=== PATIENT | male | born 1960 | race Caucasian/White ===

== ENCOUNTER 2016-03-22 07:31 | Observation (INO) | payer MEDICAID ==
[2016-03-22 07:40] VITALS: BMI 29.5
--- NOTE | 2016-03-22 08:05 | EDPRACDOC ---
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: Home Medications Alprazolam [Xanax] 1 mg PO TID PRN 09/02/14 Gabapentin [Neurontin] 400 mg PO TID 09/02/14 HydrOXYzine Pamoate (Anxiety) [Vistaril] 25 mg PO Q6H PRN 09/02/14 Oxycodone HCl [Oxycodone Immediate Release] 20 mg PO Q6H PRN 09/02/14 Oxymorphone HCl [Opana ER] 10 mg PO Q12H 09/02/14 Fluticasone/Vilanterol [Breo Ellipta 100-25 Mcg INH] 1 puff INH DAILY 03/22/16 Allergies/Adverse Reactions: Allergies Allergy/AdvReac Type Severity Reaction Status Date / Time No Known Allergies Allergy Verified 09/02/14 11:28 - History of Present Illness Onset: 3 years HPI: PT PRESENTS WITH PARANOIA AND PERSECUTIONAL THOUGHTS. REPORTS THERE ARE ALIENS IN HIS ABDOMEN THAT HAVE BEEN THERE SINCE HE WAS A CHILD THAT CAN CONTROL HIS AND EVERYONE'S THOUGHTS. STATES HE WANTS THEM OUT. Reason for Seeking Treatment: 911 Call Presents With: Reports: Anxiety, Unclear Thinking Relevant History: Reports: Anxiety, Schizophrenia, Bipolar - Treatment Prior to ED Arrival Reported Medications/Treatment SPOT CHECKER Medications SPOT CHECKER (Medication/ none Dose/Time) ED Past Medical History - History Reviewed Yes Nurses notes reviewed and agree except as marked - Patient Medical History Cardiac History: Reports: Hypertension Psychological History: Reports: Depression, Anxiety, Schizophrenia, Bipolar Disorder Additional Past Medical History: CHRONIC PAIN Surgical History: Reports: Other (PT UNABLE TO SAY) - Social Medical History Smoking Status: Heavy tobacco smoker (5 or more cigarettes/day or daily pipe/ cigar) Lives In: Home EDM Review of Systems - Review of Systems ROS Negative Except as Marked: Yes All systems reviewed and were negative except as marked Constitutional: negative: Fever Respiratory: negative: Shortness of Breath Cardiovascular: negative: Chest Pain Gastrointestinal: Pain (SUPRAPUBIC). negative: Diarrhea, Vomiting Genitourinary: negative: Dysuria Psychiatric: Anxiety, Other (PARANOID THOUGHTS) - Physical Exam Constitutional: Alert Oriented to: Person, Place Last recorded Vital Signs: Last Vital Signs Temp 98.2 F 03/22/16 07:33 Pulse 102 03/22/16 07:33 Resp 18 03/22/16 07:33 BP 161/103 H 03/22/16 07:33 Pulse Ox 98 03/22/16 07:33 Oxygen Pulse Oxygen Saturation 98 O2 Device Oxygen Flow Rate Fraction of Inspired Oxygen ( FIO2) - HEENT Head: negative: Deformity, Laceration Eye Exam: negative: Conjunctival Injection, Pale Conjunctiva Oropharynx: negative: Membranes Dry Nose: negative: Congestion, Discharge Neck: negative: Limited ROM - Respiratory/Cardiovascular Respiratory: Normal - CTA. negative: Accessory Muscle Use, Diminished, Tachypnea Cardiovascular: Tachycardia. negative: Bradycardia, Irregular - GI Auscultation: Normal Palpation: Normal Tenderness: Mild, Suprapubic. negative: Guarding, Rebound - Integumentary Skin: Warm, Dry. negative: Rash - Neurologic Motor Function: Normal Mood Description: Anxious Thought: Delusions, Flight of Ideas, Paranoia - Results 03/22/16 08:30 03/22/16 08:30
[2016-03-22 08:36] LABS: AUTOMATED BASOPHIL 0.8 % (0-2); AUTOMATED EOSINOPHIL 2.7 % (0-5); AUTOMATED LYMPH 14.4 % (17-44); AUTOMATED MONOCYTE 10.8 % (3-10); AUTOMATED NEUTROPHIL 71.3 % (45-76); MPV 8.7 fL (7.4-10.4)
[2016-03-22 09:13] LABS: BLOOD UREA NITROGEN 18 MG/DL (9-20); CALCIUM 9.3 MG/DL (8.4-10.2); CALCULATED OSMOLALITY 272 MOs/Kg (270-290); CHLORIDE 105 mEq/L (98-107); ETOH-MGDL < 10 mg/dL; GLUCOSE 124 MG/DL (70-99); SODIUM LEVEL 140 mEq/L (137-146); TOTAL PROTEIN 8.3 G/DL (6.3-8.2)
[2016-03-22] MEDS ORDERED: ACETAMINOPHEN 325 MG/TAB TABLET PO PRN (09:25)
[2016-03-22] MEDS ORDERED: Docusate Sodium 100 MG CAP PO PRN (09:25)
[2016-03-22] MEDS ORDERED: ONDANSETRON HCL 4 MG ODT TAB PO PRN (09:25)
[2016-03-22] MEDS ORDERED: GUAIFENESIN 200 MG/10 ML UDC PO PRN (09:25)
[2016-03-22] MEDS ORDERED: MAGNESIUM HYDROXIDE 30 ML BOTTLE PO PRN (09:25)
[2016-03-22 09:48] LABS: ALL NEG? YES; MDMA* NEG (NEGATIVE); METHAMPHETAMINES NEG (NEGATIVE); OXYCODONE NEG (NEGATIVE)
[2016-03-22] MEDS: NICOTINE 21 MG PATCH TOP SCH (09:49)
[2016-03-22 09:58] LABS: LEUKOCYTES/URINE NEG (NEGATIVE); NITRITE/URINE NEG (NEGATIVE); RBC/URINE 0-2 (0-2); URINE OCCULT BLOOD 1+ (NEG/TRACE); WBC/URINE 0-2 (0-2)
[2016-03-22] MEDS ORDERED: ALBUTEROL 6.7 GM MDI INH PRN (12:29)
[2016-03-22] MEDS: IPRATROPIUM 0.02% 2.5 ML NEB NEB SCH ×2 (15:42→21:05)
[2016-03-22] MEDS: GABAPENTIN 400 MG CAP PO SCH ×3 (15:43→21:28)
[2016-03-22] MEDS: INVEGA 3 MG PO ONE ×3 (17:26→19:12)
[2016-03-22] MEDS: PRAVASTATIN 20 MG TAB PO SCH ×2 (21:25→21:28)
[2016-03-22] MEDS: BuPROPion 150 MG SR TAB PO SCH ×2 (21:25→21:28)
[2016-03-23] MEDS: IPRATROPIUM 0.02% 2.5 ML NEB NEB SCH ×4 (01:58→20:59)
[2016-03-23] MEDS: GABAPENTIN 400 MG CAP PO SCH ×3 (05:13→20:29)
--- NOTE | 2016-03-23 08:50 | EDTUNOTE ---
- SOAP Note Time Seen By Provider: 08:30 SOAP Note: S: PT TO THE ED WITH PARANOID DELUSIONS, NONCOMPLIANT WITH MEDICATIONS. PT VOICES NO COMPLAINTS TODAY O: WDWN MALE HERNÁNDEZ X 3, VSS AFEBRILE LUNGS: CTAB CARDIAC: RRR PSYCH: CALM, COOPERATIVE A: SCHIZOPHRENIA ACUTE PSYCHOSIS MEDICATION NON-COMPLIANCE P: CONT PSYCH/MED EVAL/MGMT
[2016-03-23] MEDS ORDERED: INVEGA SUSTENNA 234 MG IM ONE (10:00)
[2016-03-23] MEDS: LISINOPRIL 10 MG TAB PO SCH (10:03)
[2016-03-23] MEDS: HydrOXYzine PAMOATE 25 MG/CAP CAP PO SCH (10:03)
[2016-03-23] MEDS: BuPROPion 150 MG SR TAB PO SCH ×2 (10:03→20:29)
[2016-03-23] MEDS: NICOTINE 21 MG PATCH TOP SCH (10:04)
[2016-03-23] MEDS: INVEGA 3 MG PO SCH (11:45)
[2016-03-23] MEDS: PRAVASTATIN 20 MG TAB PO SCH (20:29)
[2016-03-24] MEDS: IPRATROPIUM 0.02% 2.5 ML NEB NEB SCH ×5 (01:39→20:01)
[2016-03-24] MEDS: GABAPENTIN 400 MG CAP PO SCH ×3 (06:00→21:30)
--- NOTE | 2016-03-24 08:55 | EDTUNOTE ---
- SOAP Note SOAP Note: 03/24/16 0845 Day 3 S: 55 y.o. M presented to ED with delusions of aliens in his abd that can control peoples thoughts. Pt denies c/o this morning. O: Vital Signs: Temp:98.4 F HR: 69 BP: 127/68 RR: 20 Pox: 98%. Resting comfortably CTA RRR A: Acute Psychosis Schizophrenia Medication non compliance P: Continue meds as directed for further stabilization.
[2016-03-24] MEDS: INVEGA 3 MG PO SCH (09:25)
[2016-03-24] MEDS: LISINOPRIL 10 MG TAB PO SCH (09:25)
[2016-03-24] MEDS: BuPROPion 150 MG SR TAB PO SCH ×2 (09:28→21:30)
[2016-03-24] MEDS: NICOTINE 21 MG PATCH TOP SCH (09:28)
--- NOTE | 2016-03-24 14:55 | TUDEPART ---
Discussion of OBS Stay: 03/24/16 0845 Day 3 S: 55 y.o. M presented to ED with delusions of aliens in his abd that can control peoples thoughts. Pt denies c/o this morning. O: Vital Signs: Temp:98.4 F HR: 69 BP: 127/68 RR: 20 Pox: 98%. Resting comfortably CTA RRR A: Schizophrenia Medication non compliance P: Continue meds as directed for further stabilization. Pt refusing placement or additional help from TA or oncology social work. Disposition: Home Condition: Good Education/Counseling Given To: Patient Education/Counseling Given Regarding: Diagnosis, Treatment - Physical Exam Constitutional: Alert Oriented to: Person, Place Last recorded Vital Signs: Last Vital Signs Temp 97.9 F 03/24/16 11:59 Pulse 98 03/24/16 11:59 Resp 18 03/24/16 11:59 BP 120/75 03/24/16 11:59 Pulse Ox 96 03/24/16 11:59 Oxygen Pulse Oxygen Saturation 96 O2 Device Room Air Oxygen Flow Rate Fraction of Inspired Oxygen ( FIO2) - HEENT Head: negative: Deformity, Laceration Eye Exam: negative: Conjunctival Injection, Pale Conjunctiva Oropharynx: negative: Membranes Dry Nose: negative: Congestion, Discharge - Respiratory/Cardiovascular Respiratory: Normal - CTA. negative: Accessory Muscle Use, Diminished, Tachypnea Cardiovascular: Tachycardia. negative: Bradycardia, Irregular - GI Auscultation: Normal Palpation: Normal Tenderness: Mild, Suprapubic. negative: Guarding, Rebound - Integumentary Skin: Warm, Dry. negative: Rash - Neurologic Motor Function: Normal Mood Description: Anxious Thought: Delusions, Flight of Ideas, Paranoia
[2016-03-24] MEDS: PRAVASTATIN 20 MG TAB PO SCH (21:30)
[2016-03-25] MEDS: IPRATROPIUM 0.02% 2.5 ML NEB NEB SCH ×4 (01:10→20:54)
[2016-03-25] MEDS: GABAPENTIN 400 MG CAP PO SCH ×3 (06:04→20:32)
--- NOTE | 2016-03-25 08:32 | EDTUNOTE ---
- SOAP Note SOAP Note: 03/25/16 0825 Day 4 S: 55 y.o. M presented to ED with delusions of aliens in his abd that can control peoples thoughts. Pt denies c/o this morning. After pt was attempted to be discharged he decided he would consent to assisted living placement. Discharge planning was consulted. O: Vital Signs: Temp:98.4 F HR: 69 BP: 127/68 RR: 20 Pox: 98%. Resting comfortably CTA RRR A: Schizophrenia Medication non compliance P: Continue meds as directed for further stabilization.
[2016-03-25] MEDS: HydrOXYzine PAMOATE 25 MG/CAP CAP PO SCH (09:01)
[2016-03-25] MEDS: INVEGA 3 MG PO SCH (09:01)
[2016-03-25] MEDS: BuPROPion 150 MG SR TAB PO SCH ×2 (09:02→20:32)
[2016-03-25] MEDS: NICOTINE 21 MG PATCH TOP SCH (09:02)
[2016-03-25] MEDS: LISINOPRIL 10 MG TAB PO SCH (09:05)
[2016-03-25] MEDS: IBUPROFEN 400 MG TAB PO PRN ×2 (12:43→20:32)
[2016-03-25] MEDS: LORAZEPAM 1 MG TAB PO PRN ×2 (12:44→20:32)
[2016-03-25] MEDS: PRAVASTATIN 20 MG TAB PO SCH (20:32)
[2016-03-26] MEDS: IPRATROPIUM 0.02% 2.5 ML NEB NEB SCH ×4 (04:45→20:50)
[2016-03-26] MEDS: GABAPENTIN 400 MG CAP PO SCH ×3 (05:48→21:05)
--- NOTE | 2016-03-26 08:53 | EDTUNOTE ---
- SOAP Note Time Seen By Provider: 08:52 SOAP Note: 03/26/16 0852 Day 5 S: 55 y.o. M presented to ED with delusions of aliens in his abd that can control peoples thoughts. Pt denies c/o this morning. Patient is easy to wake but goes right back to sleep, does not answer many questions. O: VSS CTAB RRR Calm and cooperative A: Schizophrenia Medication non compliance P: Continue meds as directed for further stabilization.
[2016-03-26] MEDS: IBUPROFEN 400 MG TAB PO PRN ×3 (09:39→21:05)
[2016-03-26] MEDS: HydrOXYzine PAMOATE 25 MG/CAP CAP PO SCH (09:40)
[2016-03-26] MEDS: NICOTINE 21 MG PATCH TOP SCH (09:40)
[2016-03-26] MEDS: BuPROPion 150 MG SR TAB PO SCH ×2 (09:40→21:06)
[2016-03-26] MEDS: LISINOPRIL 10 MG TAB PO SCH (09:40)
[2016-03-26] MEDS: INVEGA 3 MG PO SCH (09:40)
[2016-03-26] MEDS: LORAZEPAM 1 MG TAB PO PRN ×3 (09:40→21:06)
[2016-03-26] MEDS ORDERED: TEMAZEPAM 15 MG CAP PO PRN (19:27)
[2016-03-26] MEDS: PRAVASTATIN 20 MG TAB PO SCH (21:06)
[2016-03-27] MEDS: IPRATROPIUM 0.02% 2.5 ML NEB NEB SCH ×2 (02:24→10:08)
[2016-03-27] MEDS: GABAPENTIN 400 MG CAP PO SCH (06:38)
[2016-03-27] MEDS: LORAZEPAM 1 MG TAB PO PRN (06:39)
[2016-03-27] MEDS: IBUPROFEN 400 MG TAB PO PRN (06:39)
[2016-03-27] MEDS: INVEGA 3 MG PO SCH (08:23)
[2016-03-27] MEDS: HydrOXYzine PAMOATE 25 MG/CAP CAP PO SCH (08:23)
[2016-03-27] MEDS: BuPROPion 150 MG SR TAB PO SCH (08:23)
[2016-03-27] MEDS: LISINOPRIL 10 MG TAB PO SCH (08:24)
[2016-03-27] MEDS: NICOTINE 21 MG PATCH TOP SCH (08:24)
--- NOTE | 2016-03-27 10:15 | EDTUNOTE ---
- SOAP Note SOAP Note: 03/26/16 0852 Day 5 S: 55 y.o. M presented to ED with delusions of aliens in his abd that can control peoples thoughts. Pt denies c/o this morning. Patient is easy to wake but goes right back to sleep, does not answer many questions. No c/o at this time. O: VSS CTAB RRR Calm and cooperative A: Schizophrenia Medication non compliance P: Continue meds as directed for further stabilization.
[2016-03-27 11:51] VITALS: BP 119/74; TEMP 98.4
[2016-03-27 12:24] VITALS: PULSE 98
== END 2016-03-27 12:15 | disposition home or self-care (01) ==
LOC: ED 07:31 → EDINP 09:25 → TUOBSINP 13:09
PROVIDERS: ADMIT Emergency Medicine; ATTEND Emergency Medicine
DX: F20.9 Schizophrenia, unspecified (principal); F22 Delusional disorders; Z91.14 Patient's other noncompliance with medication regimen; Z79.899 Other long term (current) drug therapy; F17.210 Nicotine dependence, cigarettes, uncomplicated; I10 Essential (primary) hypertension
CPT/HCPCS: 36415; 80053; 80307; 81001; 82962; 85025; 86592; 94640; 99285; G0378; J3490